=== PATIENT | female | born 1955 | race Caucasian/White ===

== ENCOUNTER 2016-02-24 07:44 | Inpatient (IN) | payer BC ==
[~2016-02-24] VITALS: Ht 154.9 cm; Wt 72.4 kg
[~2016-02-24 07:44] MED LIST: AMLO5TAB4 PO; ASPI-664 PO; CIPR500T4 PO; LANT3I SC; LIRA0.6P2 SQ; LOSA100T7 PO; ONDA4TAB35 PO; RANI150T5 PO; ULT50 PO
[2016-02-24] MEDS ORDERED: SODIUM CHLORIDE 0.9% 1L BAG IV* STA (08:31)
[2016-02-24] MEDS ORDERED: CEFTRIAXONE 1 GM/50 ML (PMX) 50 ML IVPB STA (08:31)
--- NOTE | 2016-02-24 08:54 | RADRPT ---
PROCEDURE: Chest Radiograph. CLINICAL INDICATION: Fever. TECHNIQUE: Single frontal chest radiograph. COMPARISON: None available FINDINGS: The cardiomediastinal silhouette is within normal limits. No infiltrate or effusion is seen. Th e bones are intact. IMPRESSION: 1. Unremarkable chest radiograph. RPTAT: KK .Red Acosta MD, MD Date Time Electronically viewed and signed by .Red Acosta MD, on 02/24/2016 08:54 .B/
[2016-02-24 09:22] LABS: ALBUMIN 4.4 g/dl (3.3-4.9); CHLORIDE 100 mmol/L (97-110); INR 1.09; PROTIME 14.1 Sec (12.2-14.2); PT RATIO 1.1
[2016-02-24 09:23] LABS: PARTIAL THROMBOPLASTIN TIME 29.5 Sec (25.0-35.0); POTASSIUM 3.8 mmol/L (3.5-5.1); SODIUM 139 mmol/L (135-144)
[2016-02-24 09:25] LABS: ALANINE AMINOTRANSFERASE 22 IU/L (13-69); ALBUMIN/GLOBULIN RATIO 1.15; ALKALINE PHOSPHATASE 111 IU/L (42-121); ANION GAP 19 (8-16); ASPARTATE AMINO TRANSFERASE 17 IU/L (15-46); BILIRUBIN,INDIRECT 0.6 mg/dl (0-1.1); BILIRUBIN,TOTAL 0.6 mg/dl (0.2-1.3); BLOOD UREA NITROGEN 14 mg/dl (7-20); CALCIUM 10.2 mg/dl (8.4-10.2); CARBON DIOXIDE 24 mmol/L (21-31); CREATININE 0.71 mg/dl (0.44-1.00); GLUCOSE 176 mg/dl (70-220); HEMATOCRIT 41.9 % (37.0-47.0); HEMOGLOBIN 14.4 g/dl (12.0-16.0); LYMPHOCYTES # 1.2 10^3/ul (0.8-2.9); LYMPHOCYTES % 7.3 % (15.0-51.0); MEAN CORPUSCULAR HEMOGLOBIN 28.8 pg (29.0-33.0); MEAN CORPUSCULAR HGB CONC 34.4 g/dl (32.0-37.0); MEAN CORPUSCULAR VOLUME 83.7 fl (82.0-101.0); MEAN PLATELET VOLUME 8.6 fl (7.4-10.4); MONOCYTE # 1.2 10^3/ul (0.3-0.9); NEUTROPHIL # 14.2 10^3/ul (1.6-7.5); NEUTROPHILS % 85.7 % (39.0-77.0); PLATELET COUNT 217 10^3/UL (140-440); RED CELL DISTRIBUTION WIDTH 13.2 % (11.5-14.5); TOTAL PROTEIN 8.2 g/dl (6.1-8.1); UNCORRECTED WBC 16.6 10^3/ul (4.8-10.8); WHITE BLOOD COUNT 16.6 10^3/ul (4.8-10.8)
[2016-02-24 09:35] LABS: CONDITION 1
[2016-02-24 09:36] LABS: ADD UMIC YES; URINE BILIRUBIN (Dip) NEGATIVE (NEGATIVE); URINE BLOOD (Dip) NEGATIVE (NEGATIVE); URINE COLOR LT. YELLOW (YELLOW); URINE GLUCOSE (Dip) NEGATIVE (NEGATIVE); URINE KETONES (Dip) 3+ (NEGATIVE); URINE LEUKOCYTE ESTERASE (Dip) TRACE (NEGATIVE); URINE NITRITE (Dip) NEGATIVE (NEGATIVE); URINE TOTAL PROTEIN (Dip) 1+ (NEGATIVE); URINE UROBILINOGEN (Dip) 1.0 E.U./dL (0.1-1.0)
[2016-02-24 09:40] LABS: TROPONIN-I < 0.012 ng/ml (0.00-0.12)
[2016-02-24] MEDS ORDERED: LIRA0.6P SQ (10:13)
[2016-02-24 10:23] LABS: BACTERIA,URINE FEW; URINE RBCS NONE SEEN /HPF (0)
[2016-02-24] MEDS ORDERED: ACETAMINOPHEN 500 MG TAB PO STA (11:35)
--- NOTE | 2016-02-24 12:02 | RADRPT ---
PROCEDURE: CT Abdomen and Pelvis without contrast. CLINICAL INDICATION: Abdominal pain TECHNIQUE: CT scan of the abdomen and pelvis was performed on a multidetector high-resolution CT s canner without intravenous contrast. Coronal and sagittal reformatted images were obtained from the axial source images. Images were reviewed on a high-resolution PACS workstation. The total exam CTD I equals 15mGy and the total exam DLP equals 784mGy-cm. One or more of the following dose reduction techniques were used: Automated exposure control, Adjustment of the mA and/or kV according to patien t size, and/or use of iterative reconstruction technique. COMPARISON: Abdominal CT 04/13/2015 FINDINGS: Evaluation of the solid organs is limited given the lack of intravenous contrast administration. The lung bases are clear. Hypoattenuation of the liver. The pancreas, spleen, and adrenals are grossly unremarkable. No focal pericholecystic inflammatory changes. No hydronephrosis. No renal or ureteral stone. Left renal cyst. No bowel obstruction. Normal-caliber appendix. No significant retroperitoneal lymphadenopathy, ascites or evidence of pneumoperitoneum. Increased size of the 8 cm left adnexal/left lower quadrant complex cystic lesion with septations. IMPRESSION: Increased size of the 8 cm left adnexal/left lower quadrant complex cystic lesion with septations. R ecommend MRI pelvis with and without contrast for further evaluation if not already completed. No renal or ureteral stone. Normal-caliber appendix. No evidence of bowel obstruction. Hepatic steatosis. RPTAT: AA .Matt Vail MD, MD Date Time Electronically viewed and signed by .Matt Vail MD, on 02/24/2016 12:02 .T/
[2016-02-24] MEDS ORDERED: morphine 4 MG/ML VIAL IV STA (13:44)
[2016-02-24] MEDS ORDERED: ONDANSETRON 4 MG INJ IV PRN ×2 (14:00→16:30)
[2016-02-24] MEDS ORDERED: ACETAMINOPHEN 325 MG TAB PO PRN ×2 (14:00→16:30)
[2016-02-24 14:17] VITALS: TEMP 98.8
[2016-02-24 15:20] VITALS: Ht 154.9 cm; Wt 72.4 kg
[2016-02-24 15:21] VITALS: BP 115/55; PULSE 89; RESP 18
[2016-02-24] MEDS ORDERED: ZOLPIDEM 5 MG TAB PO PRN (16:30)
[2016-02-24] MEDS ORDERED: LORAZEPAM 2 MG INJ IV PRN (16:30)
[2016-02-24] MEDS ORDERED: HYDROCODONE/APAP (5/325) TAB PO PRN (16:30)
[2016-02-24] MEDS ORDERED: NACL 0.9% 3 ML SYG IV SCH (16:30)
[2016-02-24] MEDS ORDERED: GLUCAGON 1 MG INJ IM PRN (17:00)
[2016-02-24] MEDS ORDERED: GLUCOSE GEL 15 GRAM TUBE BUCCAL PRN (17:00)
[2016-02-24] MEDS ORDERED: DEXTROSE 50% 50 ML SYRINGE IV PRN ×2 (17:00)
[2016-02-24] MEDS ORDERED: GLUCOSE GEL 15 GRAM TUBE PO PRN ×2 (17:00)
[2016-02-24] MEDS: SOD CHLORIDE 0.45% 1,000 ML IV SCH (17:05)
[2016-02-24] MEDS: CEFTRIAXONE 1 GM/50 ML (PMX) 50 ML IVPB SCH (17:06)
[2016-02-24] MEDS: AMLODIPINE 5 MG TAB PO SCH (17:12)
[2016-02-24] MEDS: LOSARTAN 50 MG TAB PO SCH (17:12)
[2016-02-24] MEDS: ASPIRIN (EC) 81 MG TAB PO SCH (17:12)
[2016-02-24] MEDS: INSULIN ASPART [NOVOLOG] 3 ML PEN SC SCH ×3 (17:39→20:05)
--- NOTE | 2016-02-24 18:30 | HP ---
DATE OF ADMISSION: 02/24/2016 CHIEF COMPLAINT: Fevers, sweating and lower back pain. HISTORY OF PRESENT ILLNESS: The patient is a 60-year-old female with history of insulin-dependent d iabetes, hypertension, dyslipidemia, as well as previous history of pyelonephritis and TIA in the [facility]. The patient's last UTI was 3 years ago at [facility]. At that time, patient states that it did involve her kidneys. The patient presents with 3 days of worsening fevers, chills, diaphoresis wit h pain in her left lower back as well as in her lower abdomen. She presents to the ED where she was noted to have a fever of 101.1, pulse was tachycardic. She had leukocytosis. The patient has no o ther complaints at this time. She denies any cough. Denies any GI disturbance. Denies any shortne ss of breath or chest pain. PAST MEDICAL HISTORY: Insulin-dependent diabetes, hypertension, dyslipidemia, UTI and possible TIA 3 years ago. PAST SURGICAL HISTORY: . HOME MEDICATIONS: 1. Norvasc. 2. Aspirin. 3. Lantus. 4. Losartan. 5. Victoza. 6. Z-Diego ALLERGIES: NO KNOWN DRUG ALLERGIES. FAMILY HISTORY: Diabetes. SOCIAL HISTORY: Denies any alcohol, tobacco, or drug abuse. REVIEW OF SYSTEMS: A 12-point review of systems negative except for that discussed in the HPI. PHYSICAL EXAMINATION: VITAL SIGNS: Temperature max was 101.5, temperature current is 97.7, pulse is 89, respirations are 18, blood pressure is 115/55, saturation 97% on room air. GENERAL: No acute distress, alert and oriented. HEENT: Normocephalic, atraumatic. CHEST: Clear to auscultation. CARDIOVASCULAR: Regular rate and rhythm. ABDOMEN: Nondistended, soft. Tender to palpation in the lower midepigastrium. EXTREMITIES: No clubbing, cyanosis, or edema. BACK: Positive CVA tenderness in left back. LABORATORY DATA: White count 16.6, hemoglobin is 14.4, platelets are 217. Chemistry: Sodium is 13 9, potassium 3.8, anion gap 19. Lactic acid is 1.4, total protein is 8.2. INR is 1.09. UA has 2+ ketones, trace leukocyte esterase, WBCs 5 to 10 and total protein is 1+. DIAGNOSTICS: Abdominal pelvis CT shows increased size of the 8 cm left adnexal, left lower quadrant complex cystic lesion with septations. Recommend MRI of pelvis with and without contrast for furth er evaluation. No renal or ureteral stones. Normal caliber appendix. No evidence of bowel obstruc tion. Hepatic steatosis. Chest x-ray is unremarkable. ASSESSMENT AND PLAN: 1. Sepsis likely secondary to urinary tract infection. The patient's UA does suggest possibility o f urinary tract infection and her symptoms are consistent with a UTI with CVA tenderness on the left side and lower abdominal pain consistent with cystitis. We will treat empirically with Rocephin an d I will obtain a urine culture. Alternate etiology of abdominal pain may be secondary to adnexal m ass. We will obtain an MRI of pelvis with and without contrast for further evaluation. 2. Diabetes. Continue home insulin. 3. Hypertension. Continue home blood pressure meds. 4. Dyslipidemia. Continue statin. 5. Prophylaxis. Ambulation. Dictated By: LEODAN ADAM/RICARDO Conf#: [id number] DID#: [id number]
--- NOTE | 2016-02-24 18:36 | ERA ---
DATE OF SERVICE: 02/24/2016 HISTORY OF PRESENT ILLNESS: This 60-year-old female presented to the emergency room with upper abdo matty pain and fever for 3 days. She has also had some diarrhea. This is copious and watery withou t blood. She also had nausea and an episode of vomiting without blood or bile. She feels generaliz ed weakness and tiredness. She is a diabetic and states that her sugars are fairly well controlled. Denies chest pain, shortness of breath. Upper abdominal pain is a band-like sensation that goes a cross her entire upper abdomen and feels sharp and pressure-like. It does not radiate. REVIEW OF SYSTEMS: Ten-point review of systems negative except as in HPI. PAST MEDICAL HISTORY: Hypertension, hypercholesterolemia, diabetes. PAST SURGICAL HISTORY: Denies. SOCIAL HISTORY: Denies tobacco, alcohol, other drugs. Lives with family. FAMILY HISTORY: Noncontributory. PHYSICAL EXAMINATION VITAL SIGNS: Temperature 101.5, pulse 125, blood pressure 166/73, respirations 22, oxygen saturatio n 99% on room air. GENERAL: Mild to moderate distress, ill appearing. HEENT: Normocephalic, atraumatic. Mucous membranes of the mouth are moist. NECK: Supple. No meningismus or JVD. CARDIAC: Regular tachycardia without murmur. LUNGS: Clear to auscultation bilaterally. ABDOMEN: Mild upper abdominal tenderness across entire upper abdomen, moderate in epigastric area. No guarding or rebound. Bowel sounds positive. Nondistended. EXTREMITIES: No cyanosis, clubbing or edema. NEUROLOGIC: Alert and oriented x3. Cranial nerves II through XII intact. No focal deficits. SKIN: No rashes or other lesions. Dry, warm to touch. VASCULAR: Distal pulses intact to all 4 extremities with capillary refill less than 1 second. DIAGNOSTIC DATA: Laboratory: CBC significant for elevated white blood cell count of 16.6, no anemi a. BMP is within normal limits. Liver function tests are within normal limits. Troponin is negati ve. Coagulation studies within normal limits with an INR of 1.1. Urinalysis significant for 5 to 1 0 white blood cells per high-power field with trace leukocyte esterase. IMAGING DATA: Chest x-ray interpretation by myself. No acute process, no infiltrate, no widened me diastinum, no pneumothorax, no bony abnormalities. CT abdomen and pelvis interpretation: No definite acute process, no obstruction, no free air, no ab normal fat stranding. Per the radiologist, patient does have increase in left adnexal mass. No bon y abnormalities. EKG interpretation: Sinus tachycardia with normal axis and no ST or T-wave changes concerning for a cute ischemia. property assessment monitor interpretation: Sinus tachycardia, eventually transitioned to donita l sinus rhythm with no other arrhythmias. EMERGENCY DEPARTMENT COURSE AND MEDICAL DECISION MAKING: The patient has sepsis without an obvious source. Pain is upper abdominal. Does have increased white blood cells in her urine. Possibly thi s is secondary to urinary tract infection. No abdominal emergency was found. The patient does have a left adnexal mass but does not have any pain in the left lower quadrant or any tenderness on exam . She does appear ill and has 4 SIRS criteria with elevated white blood cell count, tachycardia, fe ton and respiratory rate. She was given 30 mL of IV fluid per kilogram as well as Rocephin for empi jose therapy. She was also given morphine and Zofran which helped her pain and resolved her nausea. She also does complain of diarrhea, possibly has a moderately severe gastroenteritis. She is diabe tic and will certainly be admitted for further evaluation and care of her septic condition. I spoke with Dr. Guerra, who will be admitting. Critical care time 36 minutes: This includes management of sepsis in an ill-appearing patient, care ful fluid administration, immediate antibiotic therapy, chart review, multiple visits to the patient 's bedside to re-assess her status, discussion with patient and admitting doctor. This does not inc lude any billable procedures. ADMISSION DIAGNOSES: 1. Sepsis. 2. Acute abdominal pain. 3. Diarrhea. 4. Left adnexal mass. DISPOSITION: Admitted in serious condition. Dictated By: STACY LARA/RICARDO Conf#: [id number] DID#: [id number]
[2016-02-24] MEDS: morphine 2 MG INJ IV PRN (18:54)
[2016-02-24] MEDS: INSULIN GLARGINE [LANtus] 3 ML PEN SC SCH (20:07)
[2016-02-24 20:48] VITALS: BP 99/55; RESP 18
[2016-02-25] MEDS: SOD CHLORIDE 0.45% 1,000 ML IV SCH ×3 (00:04→17:32)
[2016-02-25] MEDS: ACCUCHECK XX SCH (02:00)
[2016-02-25] MEDS: morphine 2 MG INJ IV PRN ×2 (05:21→10:09)
[2016-02-25 06:23] LABS: POTASSIUM 3.8 mmol/L (3.5-5.1)
[2016-02-25 06:25] LABS: CREATININE 0.6 mg/dl (0.44-1.00)
[2016-02-25 06:26] LABS: CALCIUM 9.6 mg/dl (8.4-10.2); MAGNESIUM 2.1 mg/dl (1.7-2.5); PHOSPHORUS 2.2 mg/dl (2.5-4.9)
[2016-02-25 06:27] LABS: CHOL/HDL RATIO 4.3 RATIO
[2016-02-25 06:29] LABS: BASOPHILS % 0.1 % (0.0-2.0); EOSINOPHILS % 0.2 % (0.0-7.0); HEMATOCRIT 39.5 % (37.0-47.0); HEMOGLOBIN 13.6 g/dl (12.0-16.0); LYMPHOCYTES # 1.7 10^3/ul (0.8-2.9); MEAN CORPUSCULAR HEMOGLOBIN 28.9 pg (29.0-33.0); MEAN CORPUSCULAR HGB CONC 34.5 g/dl (32.0-37.0); MEAN CORPUSCULAR VOLUME 83.7 fl (82.0-101.0); MONOCYTE # 1.5 10^3/ul (0.3-0.9); MONOCYTES % 8.1 % (0.0-11.0); NEUTROPHIL # 15.8 10^3/ul (1.6-7.5); NEUTROPHILS % 82.6 % (39.0-77.0); PLATELET COUNT 214 10^3/UL (140-440); RED BLOOD COUNT 4.71 10^6/ul (4.20-5.40); RED CELL DISTRIBUTION WIDTH 13.6 % (11.5-14.5); UNCORRECTED WBC 19.1 10^3/ul (4.8-10.8); WHITE BLOOD COUNT 19.1 10^3/ul (4.8-10.8)
[2016-02-25 06:51] LABS: CONDITION 1
[2016-02-25 07:37] VITALS: BP 140/63; RESP 19
[2016-02-25] MEDS: INSULIN ASPART [NOVOLOG] 3 ML PEN SC SCH ×7 (08:00→20:17)
[2016-02-25] MEDS: ASPIRIN (EC) 81 MG TAB PO SCH (08:42)
[2016-02-25] MEDS: AMLODIPINE 5 MG TAB PO SCH (08:42)
[2016-02-25] MEDS: LOSARTAN 50 MG TAB PO SCH (08:42)
--- NOTE | 2016-02-25 15:28 | PN ---
Date/Time of Note Date/Time of Note DATE: 02/25/16 TIME: 15:23 Assessment/Plan VTE Prophylaxis VTE Prophylaxis Intervention: ambulation Lines/Catheters IV Catheter Type (from Nrsg): Peripheral IV Assessment/Plan Chief Complaint/Hosp Course 1. Sepsis likely secondary to urinary tract infection vs Adnexal mass -F/U on Ucx -MRI pelvis to further eval Adnexal mass, Medical Scribe consult -cont Rocephin 2. Diabetes -Continue home insulin -A1C at 7.6 3. Hypertension-stable -cont home Rx 4. Dyslipidemia -Continue statin. 5. Neck pain -CT neck Prophylaxis- Ambulation. Problems: Subjective 24 Hr Interval Summary ENT: sore throat Gastrointestinal: pain Exam/Review of Systems Vital Signs Vitals Vital Signs Date Time Temp Pulse Resp B/P Pulse Ox O2 Delivery O2 Flow Rate FiO2 02/25/16 07:37 98.2 85 19 140/63 97 02/24/16 15:21 Room Air 02/24/16 08:43 3 Intake and Output 02/24/16 02/24/16 02/25/16 15:00 23:00 07:00 Intake Total 120 ml 1220 ml Balance 120 ml 1220 ml Exam Constitutional: alert, oriented Respiratory: clear to auscultation Cardiovascular: regular rate and rhythm Gastrointestinal: soft, tender, No distended Musculoskeletal: nl extremities to inspection Results Result Diagram: 02/25/16 0515 02/25/16 0515 Results 24 hrs Laboratory Tests Test 02/24/16 16:20 02/24/16 17:19 02/24/16 19:55 02/25/16 05:15 Lactic Acid Level 1.5 Bedside Glucose 222 H 140 Anion Gap 15 Basophils # 0.0 Basophils % 0.1 Blood Morphology Comment Blood Urea Nitrogen 11 Calcium Level 9.6 Carbon Dioxide Level 26 Chloride Level 105 Cholesterol Level 136 Cholesterol/HDL Ratio 4.3 Creatinine 0.60 Eosinophils # 0.0 Eosinophils % 0.2 Glucose Level 106 # HDL Cholesterol 31 L Hematocrit 39.5 Hemoglobin 13.6 Hemoglobin A1c 7.6 H LDL Cholesterol, Calculated 92 Lymphocytes # 1.7 Lymphocytes % 9.0 L Magnesium Level 2.1 Mean Corpuscular Hemoglobin 28.9 L Mean Corpuscular Hemoglobin Concent 34.5 Mean Corpuscular Volume 83.7 Mean Platelet Volume 9.0 Monocytes # 1.5 H Monocytes % 8.1 Neutrophils # 15.8 H Neutrophils % 82.6 H Nucleated Red Blood Cells # 0.0 Nucleated Red Blood Cells % 0.0 Phosphorus Level 2.2 L Platelet Count 214 Potassium Level 3.8 Red Blood Count 4.71 Red Cell Distribution Width 13.6 Sodium Level 142 Triglycerides Level 66 White Blood Count 19.1 H Test 02/25/16 08:01 02/25/16 11:18 Bedside Glucose 105 243 H Medications Medications Current Medications Sodium Chloride (1/2 NS) 1,000 ml @ 125 mls/hr Q8H IV Last administered on 05:20; Admin Dose 125 MLS/HR; Start 02/24/16 at 16:04 Ondansetron HCl (Zofran Inj) 4 mg Q6H PRN IV NAUSEA AND/OR VOMITING; Start at 16:30 Acetaminophen (Tylenol Tab) 650 mg Q6H PRN PO PAIN LEVEL 1-3 OR FEVER; Start at 16:30 Acetaminophen/ Hydrocodone Bitart ([place] (5/325)) 1 tab Q6H PRN PO MODERATE PAIN LEVEL 4-6 Last administered on 02/24/16 17:06; Admin Dose 1 TAB; Start at 16:30 Morphine Sulfate (morphine) 2 mg Q4H PRN IV SEVERE PAIN LEVEL 7-10 Last administered on 02/25/16 10:09; Admin Dose 2 MG; Start 02/24/16 at 16:30 Zolpidem Tartrate (Ambien) 5 mg QHS PRN PO SLEEP; Start 02/24/16 at 16:30 Diagnostic Test (Pha) 1 ea 1 ea 02 XX ; Start 02/25/16 at 02:00 Ceftriaxone Sodium (Rocephin) 50 ml @ 100 mls/hr Q24H IVPB Last administered on 02/24/16 17:06; Admin Dose 100 MLS/HR; Start 02/24/16 at 16:30 Amlodipine Besylate (Norvasc) 5 mg DAILY PO Last administered on 02/25/16 08: 42; Admin Dose 5 MG; Start 02/24/16 at 17:00 Aspirin (Halfprin) 81 mg DAILY PO Last administered on 02/25/16 08:42; Admin Dose 81 MG; Start 02/24/16 at 17:00 Losartan Potassium (Cozaar) 100 mg DAILY PO Last administered on 02/25/16 08: 42; Admin Dose 100 MG; Start 02/24/16 at 17:00 Insulin Glargine (Lantus) 14 unit HS SC Last administered on 02/24/16t 20:07; Admin Dose 14 UNIT; Start 02/24/16 at 21:00 Lorazepam (Ativan) 0.5 mg Q6H PRN IV AGITATION/ANXIETY; Start 02/24/16 at 16:30 Miscellaneous Information 1 ea NOTE XX ; Start 02/24/16 at 17:00 Glucose (Glutose) 15 gm Q15M PRN PO DECREASED GLUCOSE; Start 02/24/16 at 17:00 Glucose (Glutose) 22.5 gm Q15M PRN PO DECREASED GLUCOSE; Start 02/24/16 at 17: 00 Dextrose (D50w Syringe) 25 ml Q15M PRN IV DECREASED GLUCOSE; Start 02/24/16 at 17:00 Dextrose (D50w Syringe) 50 ml Q15M PRN IV DECREASED GLUCOSE; Start 02/24/16 at 17:00 Glucagon (Glucagen) 1 mg Q15M PRN IM DECREASED GLUCOSE; Start 02/24/16 at 17:00 Glucose (Glutose) 15 gm Q15M PRN BUCCAL DECREASED GLUCOSE; Start 02/24/16 at 17 :00 LEODAN FINLEY Feb 25, 2016 15:28
[2016-02-25] MEDS: CEFTRIAXONE 1 GM/50 ML (PMX) 50 ML IVPB SCH (17:29)
[2016-02-25] MEDS: INSULIN GLARGINE [LANtus] 3 ML PEN SC SCH (20:17)
[2016-02-25 20:50] VITALS: BP 124/59; RESP 19
[2016-02-25] MEDS ORDERED: IOHEXOL 300MG/ML 150 ML BTL ONE (21:24)
[2016-02-25] MEDS ORDERED: SOD CHLORIDE 0.9% 100 ML ONE (21:24)
[2016-02-26] MEDS: SOD CHLORIDE 0.45% 1,000 ML IV SCH ×3 (00:04→16:04)
[2016-02-26] MEDS: ACCUCHECK XX SCH (02:00)
[2016-02-26] MEDS: morphine 2 MG INJ IV PRN (02:29)
--- NOTE | 2016-02-26 02:38 | RADRPT ---
PROCEDURE: CT soft tissue neck with contrast. CLINICAL INDICATION: throat pain TECHNIQUE: The study was performed utilizing a multidetector CT scanner. Direct thin section helic ally acquired axial sections were obtained through the neck without contrast. Coronal and sagittal reformations were obtained. 80 cc Omnipaque 300 was administered without complication. The total CT DIvol is 19.69 mGy and the DLP is 404.93 mGy-cm. COMPARISON: No prior studies are available for comparison. FINDINGS: The visualized intracranial contents, paranasal sinuses, and orbits are unremarkable. March, grossly symmetric enlargement of the palatine tonsils and left lingual tonsil/base of tongue narrowing in the posterior oropharynx. The hypopharynx and laryngeal structures are unremarkable. P rominent innumerable bilateral cervical lymph nodes throughout the neck measures less than 1 cm in s hort axis dimension. Although these findings may reflect inflammatory change and pharyngitis with r eactive lymph nodes, infiltrative process such as lymphoma cannot be excluded. Direct visualization is recommended. Normal appearance of the false and true vocal cords. Bilateral thyroid calcifications right greater than left. submandibular and parotid glands are unremarkable and normal in appearance. No gross vascular abno rmality. No osteolytic or blastic lesion is evident. The visualized lung apices are clear. IMPRESSION: 1. Grossly symmetric enlargement of the palatine tonsils and left lingual tonsil / base of tongue r esulting in severe narrowing in the posterior oropharynx. Innumerable prominent lymph nodes through out the neck without bulky lymphadenopathy. Although these findings may reflect inflammatory proces s such as pharyngitis with reactive lymph nodes, an infiltrative process such as lymphoma cannot be excluded. Direct visualization is recommended. Tissue diagnosis may be considered as clinically in dicated . 2. No lytic or blastic osseous lesion. RPTAT:AAJJ Anna Marie Physician Date Time Electronically viewed and signed by Physician Burt on 02/26/2016 02:38 VLAD/
[2016-02-26 05:36] LABS: BASOPHILS % 0.4 % (0.0-2.0); EOSINOPHILS # 0.3 10^3/ul (0.0-0.5); HEMATOCRIT 39.4 % (37.0-47.0); HEMOGLOBIN 13.4 g/dl (12.0-16.0); LYMPHOCYTES # 2.1 10^3/ul (0.8-2.9); LYMPHOCYTES % 22.7 % (15.0-51.0); MEAN CORPUSCULAR HEMOGLOBIN 28.6 pg (29.0-33.0); MEAN CORPUSCULAR HGB CONC 33.9 g/dl (32.0-37.0); MEAN CORPUSCULAR VOLUME 84.2 fl (82.0-101.0); MEAN PLATELET VOLUME 8.9 fl (7.4-10.4); MONOCYTE # 1.2 10^3/ul (0.3-0.9); NEUTROPHIL # 5.7 10^3/ul (1.6-7.5); NEUTROPHILS % 60.9 % (39.0-77.0); PLATELET COUNT 208 10^3/UL (140-440); RED BLOOD COUNT 4.68 10^6/ul (4.20-5.40); RED CELL DISTRIBUTION WIDTH 13.4 % (11.5-14.5); UNCORRECTED WBC 9.3 10^3/ul (4.8-10.8); WHITE BLOOD COUNT 9.3 10^3/ul (4.8-10.8)
[2016-02-26 06:07] LABS: CONDITION 1
[2016-02-26 06:19] LABS: CREATININE 0.65 mg/dl (0.44-1.00)
[2016-02-26 06:20] LABS: CALCIUM 9.7 mg/dl (8.4-10.2); PHOSPHORUS 3.1 mg/dl (2.5-4.9)
[2016-02-26 07:54] VITALS: BP 150/70; RESP 18
[2016-02-26] MEDS: INSULIN ASPART [NOVOLOG] 3 ML PEN SC SCH ×6 (08:20→17:11)
[2016-02-26] MEDS: AMLODIPINE 5 MG TAB PO SCH (08:21)
[2016-02-26] MEDS: LOSARTAN 50 MG TAB PO SCH (08:21)
[2016-02-26] MEDS: ASPIRIN (EC) 81 MG TAB PO SCH (08:21)
--- NOTE | 2016-02-26 13:28 | PDOCDIS ---
Discharge Instructions CONDITION Patient Condition: Good HOME CARE INSTRUCTIONS: Special Diet: CARB CONTROLLED ACTIVITY: Activity Restrictions: No Restrictions FOLLOW UP/APPOINTMENTS Appointments F/U WITH YOUR PCP AND [facility] GUIDE IN 1-2 WEEKS, ALSO F/U WITH AN ENT AND PLEASE SHOW THEM THE CT SCAN OF THE NECK LEODAN FINLEY Feb 26, 2016 13:28
[2016-02-26] MEDS ORDERED: CEPH500C PO (13:30)
[2016-02-26] MEDS: CEFTRIAXONE 1 GM/50 ML (PMX) 50 ML IVPB SCH (17:01)
--- NOTE | 2016-02-26 18:58 | QN ---
Documentation Comment Gynecological Consult; This patient is a 60 years old 6 para 5 spontaneous x1 ,who had 4 previous section and one spontaneous vaginal delivery. She is hypertensive and diabetic on insulin she also had the dysuria: She came in the hospital 2 days ago complaining of abdominal pain back pain and fever . Her lab studies showed that her WBC was 16.6 on 02/25/16 , next day on 02/25 the WBC was 19.1 however her WBC dropped to 9.3 today with antibiotic treatment. On examination , she is a middle aged lady fairly comfortable on her bed. Her ENT appears to be normal , Chest is clear, No CVA tenderness. Abdomen is soft, Bowel sounds are normal, There is no true tenderness on palpation of the abdomen. Pelvic; on bimanual pelvic exam , vulva, vagina and cervix were normal. Uterus appeared to be TNS , I could not palpate a separate adnexal mass. Laboratory Tests Test 02/25/16 19:49 02/26/16 02:22 02/26/16 04:35 02/26/16 07:45 Bedside Glucose 262mg/dL 182mg/dL 155mg/dL Anion Gap 14 Basophils # 0.010^3/ul Basophils % 0.4% Blood Morphology Comment Blood Urea Nitrogen 10mg/dl Calcium Level 9.7mg/dl Carbon Dioxide Level 28mmol/L Chloride Level 108mmol/L Creatinine 0.65mg/dl Eosinophils # 0.310^3/ul Eosinophils % 3.0% Glucose Level 164mg/dl Hematocrit 39.4% Hemoglobin 13.4g/dl Lymphocytes # 2.110^3/ul Lymphocytes % 22.7% Mean Corpuscular Hemoglobin 28.6pg Mean Corpuscular Hemoglobin Concent 33.9g/dl Mean Corpuscular Volume 84.2fl Mean Platelet Volume 8.9fl Monocytes # 1.210^3/ul Monocytes % 13.0% Neutrophils # 5.710^3/ul Neutrophils % 60.9% Nucleated Red Blood Cells # 0.010^3/ul Nucleated Red Blood Cells % 0.0/100WBC Phosphorus Level 3.1mg/dl Platelet Count 76874^3/UL Potassium Level 4.0mmol/L Red Blood Count 4.6810^6/ul Red Cell Distribution Width 13.4% Sodium Level 146mmol/L White Blood Count 9.310^3/ul Test 02/26/16 12:03 02/26/16 16:56 Bedside Glucose 138mg/dL 136mg/dL Current Medications Medications (Trade) Dose Ordered Sig/Elaine Route PRN Reason Start Time Stop Time Status Last Admin Dose Admin Sodium Chloride 2230 ml 2,230 ml BOLUS OVER 2 HOURS STAT IV* 02/24/16 08:31 02/24/16 08:32 DC 02/24/16 09:12 Ceftriaxone Sodium (Rocephin) 50 ml @ 100 mls/hr ONCE STAT IVPB 02/24/16 08:31 02/24/16 09:00 DC 02/24/16 09:14 Acetaminophen (Tylenol Tab) 500 mg ONCE STAT PO 02/24/16 11:35 02/24/16 11:36 DC 02/24/16 11:53 Morphine Sulfate (morphine) 4 mg ONCE STAT IV 02/24/16 13:44 02/24/16 13:47 DC Ondansetron HCl (Zofran Inj) 4 mg BRIDGE ORDER PRN IV NAUSEA AND/OR VOMITING 02/24/16 14:00 02/25/16 13:59 DC Acetaminophen 650 mg 650 mg ER BRIDGE PRN PO MILD PAIN/FEVER 02/24/16 14:00 02/24/16 16:31 DC Sodium Chloride (1/2 NS) 1,000 ml @ 125 mls/hr Q8H IV 02/24/16 16:04 02/26/16 18:22 DC 02/26/16 02:29 IV Flush (NS 3 ml) 3 ml PER PROTOCOL IV 02/24/16 16:30 02/26/16 18:22 DC Ondansetron HCl (Zofran Inj) 4 mg Q6H PRN IV NAUSEA AND/OR VOMITING 02/24/16 16:30 02/26/16 18:22 DC Acetaminophen (Tylenol Tab) 650 mg Q6H PRN PO PAIN LEVEL 1-3 OR FEVER 02/24/16 16:30 02/26/16 18:22 DC Acetaminophen/ Hydrocodone Bitart ([place] (5/325)) 1 tab Q6H PRN PO MODERATE PAIN LEVEL 4-6 02/24/16 16:30 02/26/16 18:22 DC 02/24/16 17:06 Morphine Sulfate (morphine) 2 mg Q4H PRN IV SEVERE PAIN LEVEL 7-10 02/24/16 16:30 02/26/16 18:22 DC 02/26/16 02:29 Zolpidem Tartrate (Ambien) 5 mg QHS PRN PO SLEEP 02/24/16 16:30 02/26/16 18:22 DC Insulin Aspart (Novolog Insulin Pen) NOVOLOG *MILD* ALGORITHM WITH MEALS BEDTIME SC 02/24/16 18:05 02/26/16 18:22 DC 02/26/16 08:21 Miscellaneous Information (* Miscellaneous Pharmacy Order) HYPOGLYCEMIA PROTOCOL w... ONCE ONCE XX 02/24/16 16:30 02/24/16 16:31 UNV Miscellaneous Information (* Miscellaneous Pharmacy Order) Discontinue Glyburide, Glipizide,... ONCE ONCE XX 02/24/16 16:30 02/24/16 16:31 UNV Miscellaneous Information (* Miscellaneous Pharmacy Order) Discontinue all previ... ONCE ONCE XX 02/24/16 16:30 02/24/16 16:31 UNV Diagnostic Test (Pha) 1 ea 1 ea 02 XX 02/25/16 02:00 02/26/16 18:22 DC Ceftriaxone Sodium (Rocephin) 50 ml @ 100 mls/hr Q24H IVPB 02/24/16 16:30 02/26/16 18:22 DC 02/26/16 17:01 Amlodipine Besylate (Norvasc) 5 mg DAILY PO 02/24/16 17:00 02/26/16 18:22 DC 02/26/16 08:21 Aspirin (Halfprin) 81 mg DAILY PO 02/24/16 17:00 02/26/16 18:22 DC 02/26/16 08:21 Losartan Potassium (Cozaar) 100 mg DAILY PO 02/24/16 17:00 02/26/16 18:22 DC 02/26/16 08:21 Insulin Glargine (Lantus) 14 unit HS SC 02/24/16 21:00 02/26/16 18:22 DC 02/25/16 20:17 Insulin Aspart (Novolog Insulin Pen) 7 unit WITH MEALS SC 02/24/16 17:35 02/26/16 18:22 DC 02/26/16 17:02 Miscellaneous Information (* Miscellaneous Pharmacy Order) HYPOGLYCEMIA PROTOCOL w... ONCE ONCE XX 02/24/16 16:30 02/24/16 16:34 DC Miscellaneous Information (* Miscellaneous Pharmacy Order) Discontinue Glyburide, Glipizide,... ONCE ONCE XX 02/24/16 16:30 02/24/16 16:34 DC Miscellaneous Information (* Miscellaneous Pharmacy Order) Discontinue all previ... ONCE ONCE XX 02/24/16 16:30 02/24/16 16:34 DC Lorazepam (Ativan) 0.5 mg Q6H PRN IV AGITATION/ANXIETY 02/24/16 16:30 02/26/16 18:22 DC Miscellaneous Information 1 ea NOTE XX 02/24/16 17:00 02/26/16 18:22 DC Glucose (Glutose) 15 gm Q15M PRN PO DECREASED GLUCOSE 02/24/16 17:00 02/26/16 18:22 DC Glucose (Glutose) 22.5 gm Q15M PRN PO DECREASED GLUCOSE 02/24/16 17:00 02/26/16 18:22 DC Dextrose (D50w Syringe) 25 ml Q15M PRN IV DECREASED GLUCOSE 02/24/16 17:00 02/26/16 18:22 DC Dextrose (D50w Syringe) 50 ml Q15M PRN IV DECREASED GLUCOSE 02/24/16 17:00 02/26/16 18:22 DC Glucagon (Glucagen) 1 mg Q15M PRN IM DECREASED GLUCOSE 02/24/16 17:00 02/26/16 18:22 DC Glucose (Glutose) 15 gm Q15M PRN BUCCAL DECREASED GLUCOSE 02/24/16 17:00 02/26/16 18:22 DC IV Flush 10 ml 10 ml STK-MED ONCE .ROUTE 02/25/16 21:24 02/25/16 21:25 DC 02/25/16 22:04 Sodium Chloride (NS) 100 ml @ ud STK-MED ONCE .ROUTE 02/25/16 21:24 02/25/16 21:25 DC 02/25/16 22:04 Iohexol (Omnipaque 300mg/ ml) 150 ml STK-MED ONCE .ROUTE 02/25/16 21:24 02/25/16 21:25 DC 02/25/16 22:04 Disposition: I discussed my findings with our hospitalist. Admit Date/Time Admit Date/Time Admit Date/Time Feb 24, 2016 at 13:48 BETTINA SHEPPARD MD Feb 26, 2016 18:51
--- NOTE | 2016-02-27 12:08 | DS ---
DATE OF ADMISSION: 02/24/2016 DATE OF DISCHARGE: 02/26/2016 DISCHARGE DIAGNOSES 1. Sepsis, secondary to urinary tract infection (UTI), now stable. 2. Adnexal mass in the left, stable; no acute issues. 3. Neck pain, secondary to pharyngitis with reactive lymph nodes, improved. The patient to follow up with ENT for direct visualization to rule out . HOSPITAL COURSE: The patient is a 60-year-old female with a history of insulin-dependent diabetes, hypertension, dyslipidemia, as well as a previous history of pyelonephritis and TIA in the past. Th e patient presents with back pain with CVA tenderness on the left side. The patient did meet criteria for sepsis with leukocytosis, fever, and tachycardia. The patient's UA did suggest a possi ble UTI. Urine culture ended up showing a Group B strep. Blood cultures were negative. The patien t did have abdominal pelvis CT that showed an increased size of an 8 cm left adnexal cyst. MRI of reyes poon pelvis was recommended. MRI was attempted to be done, but the patient refused because of c laustrophobia. She was offered Ativan, but she still did not want to have the Ativan, nor did she w ant to have the MRI done. The patient had neck pain and had a soft tissue neck CT of the neck, whic h showed likely pharyngitis with reactive lymph nodes. The radiologist stated infiltrative ly mphoma could not be excluded. The patient's pain did resolve fairly quickly within the hospit alization after having received antibiotics. Her physical exam was inconsistent with a lymphoma. N onetheless, the patient's daughter was told that the patient should follow up with an ENT physician for further direct visualization. The patient was felt to be stable for discharge, as her white cou nt did resolve. She had no further fevers, and as her signs of sepsis did resolve, it was felt that she had a possible cystitis or pyelonephritis, which was now resolving. On the day of discharge, t he patient's vitals, labs, and physical exam were stable. She had no acute complaints. Questions w ere answered, and the patient's daughter was spoken to prior to discharge. CONDITION ON DISCHARGE: Stable. DISPOSITION: To home. MEDICATIONS: The patient will continue usual home medications. The patient was given Keflex 500 mg p.o. q. 12 hours for 7 days. FOLLOWUP: The patient is to follow up with PCP in 1 to 2 weeks. The patient is also to follow up w ith a [employer] for the left adnexal cyst and with ENT. Greater than 30 minutes were spent coordinating discharge of the patient. Dictated By: LEODAN FINLEY MD BS/RICARDO Conf#: [id number] DID#: [id number]
== END 2016-02-26 18:22 | disposition home or self-care (01) | DRG 872 ==
LOC: E/R 07:44 → PP2 13:48
PROVIDERS: ADMIT Family Medicine; ATTEND Family Medicine
DX: A41.9 Sepsis, unspecified organism (principal); I10 Essential (primary) hypertension; N39.0 Urinary tract infection, site not specified; J02.9 Acute pharyngitis, unspecified; E11.9 Type 2 diabetes mellitus without complications; Z79.4 Long term (current) use of insulin; E78.5 Hyperlipidemia, unspecified; M54.2 Cervicalgia
CPT/HCPCS: 70491; 71010; 74176; 80048; 80053; 80061; 81001; 81003; 82962; 83036; 83605; 83690; 83735; 84100; 84484; 85025; 85610; 85730; 87040; 87086; 93005; J0696; J1815; J2060; J2270; J7030; Q9967

== ENCOUNTER 2016-05-01 15:46 | Emergency (ER) | payer SELFPAY ==
[~2016-05-01] VITALS: Wt 70.6 kg
[~2016-05-01 15:46] MED LIST changes: +CEPH500C PO; -CIPR500T4 PO; +LIRA0.6P SQ; -LIRA0.6P2 SQ; -ONDA4TAB35 PO; -RANI150T5 PO; -ULT50 PO
== END 2016-05-01 21:39 | disposition left against medical advice (07) ==
LOC: E/R 15:46
DX: Z53.21 Procedure and treatment not carried out due to patient leaving prior to being seen by health care provider (principal)

== ENCOUNTER 2016-06-08 15:55 | Outpatient (CLI) | payer BC ==
[~2016-06-08] VITALS: Ht 154.9 cm; Wt 72.7 kg
[2016-06-08 16:11] VITALS: Ht 154.9 cm; Wt 72.7 kg
[2016-06-08] MEDS ORDERED: RISP0.5T3 PO (16:11)
[2016-06-08] MEDS ORDERED: MTF1000T PO (16:11)
[2016-06-08] MEDS ORDERED: ACET-141 PO (16:11)
[2016-06-08] MEDS ORDERED: VALS320T11 PO (16:11)
[2016-06-08] MEDS ORDERED: ATOR20TA38 PO (16:11)
[2016-06-08] MEDS ORDERED: METF-480 PO (16:11)
[2016-06-08] MEDS ORDERED: FLUO20CA22 PO (16:11)
[2016-06-08] MEDS ORDERED: LORA1TAB PO (16:11)
[2016-06-08] MEDS ORDERED: RANI150T5 PO (16:11)
[2016-06-08 16:12] VITALS: BP 121/60; PULSE 84; RESP 16
--- NOTE | 2016-06-08 16:19 | PN ---
Date/Time of Note Date/Time of Note DATE: 06/08/16 TIME: 16:16 Outpatient Progress Note Chief Complaint Chest pain/diabetes/hypertension/hyperlipidemia/anxiety HPI Chest pain/patient was recently admitted with a chest pain, patient does not have any chest pain at present, no pain in the left arm or shoulder, no diaphoresis, patient able to exercise and ambulate well, Diabetes/no polydipsia polyuria hypoglycemia, gastroparesis, blood sugar under control, Hypertension/no headache or dizziness, no lightheadedness, no local focal weakness, Hyperlipidemia/no xanthoma, on medication, side effect of medication, Anxiety/patient anxious nervous, and also history of history of depression, on medication, Review of Systems Const: No Fever, no chills, no Wt. loss, no Fatigue slightly obese, normal appetite, no diaphoresis. Eyes: No pain, no discharge, no redness, no visual change, no foreign body. ENT: No pain, no bleeding, no congestion, no sore throat, no dysphagia, no discharge or rhinitis. Lymph: No adenopathy, no tender nodes, no lymphedema. Resp: No SOB, no cough, no sputum, no wheezing, no chest pain. CV: No chest pain, no palpitaions, no PARKER, no PND, no edema. GI: Normal appetite, no pain, no nausea, no vomiting, no diarrhea, no blood, no constipation. : No frequency, no urgency, no dysuria, no hematuria, no flank pain, no discharge, no bleeding. Musc: No bone/joint pain, no back pain, no neck pain, no knee pain, no restricted ROM. Skin: No rash, no skin lesions, no erythema, no laceration, no bruising, no pruritus. Neuro: No WASSERMAN, no dizziness, no syncope, no seizure, no focal-weakness. Endo: No polyuria, no polydypsia, no dry-skin, no temp-intolerance. Psych: No hallucinations, slight depression slight anxiety, no suicidal ideation. Ext: No edema, no pain, no ulcer, no weakness. Physical Exam Vital Signs Date Time Temp Pulse Resp B/P Pulse Ox O2 Delivery O2 Flow Rate FiO2 06/08/16 16:12 97.7 84 16 121/60 97 Room Air General Appearance: A 60 year-old female who appears well-developed, well- nourished, in no acute distress. HEENT: Head normocephalic, atraumatic. Pupils equal, round, reactive to light and accommodate. Sclerae are no jaundice. Nasal turbinates pink without erythema or nasal discharge. Mucous membranes pink and moist without lesions. Oropharynx clear without any exudate or discharge. NECK: Supple. Trachea midline, No thyromegaly, No cervical lymphadenopathy, No mass, No carotid bruits, No JVD, Carotid pulses 2+ bilaterally. PULMONARY: Clear to auscultaion bilaterally, No retractions, Chest expansion symmetric bilaterally, no rales, no ronchi, no dulness on percussion. CARDIAC: Normal SI and S2, Regular rate and rythm, no murmur, gallop, or rub. GASTROINTESTINAL: Abdomen is soft, non-tender, Non Rigid, No distention, Positive bowel sounds x4 quadrants, Liver normal. SKIN: Warm, dry, no rash, no bruise, no echmosis. EXTREMITIES: Bilateral lower extremities normal, no edema, no phlabitus, pulse palpable, no contracture. MUSCULOSKELETAL: Spine Normal, Non-tender, Normal range of motion, No swelling, no deformity, no clubbing, or cyanosis, the patient has no edema to bilateral lower extremities, dorsalis pedis pulses palpable bilaterally. NEUROLOGIC: The patient is awake, alert, oriented, responding to yes/no questions appropriately, moving all extremities, cranial nerve intact, normal strenght, normal power, normal coordination, normal gait. Allergies Coded Allergies: No Known Allergy (Unverified , 02/24/16) PMH Diabetes/hypertension/hyperlipidemia/anxiety/depression section Social Hx No smoking no drinking no drugs, Family Hx Noncontributory Assessment/Plan Impression Chest pain resolved/diabetes/hypertension/hyperlipidemia/anxiety Plan Patient education done about diabetes hypertension and heart attack stroke kidney failure [place] etc. patient education done, Patient encouraged to control her blood pressure and blood sugar, Patient advised to increase exercise, and lose weight, Patient encouraged to follow with the primary care physician, Patient has all the medication, if patient has any other issues to contact us or primary care physician, Medications Home Meds Reported Medications Valsartan* (Diovan*) 320 Mg Tablet, 320 MG PO DAILY, TAB 06/08/16 Risperidone* (Risperidone*) 0.5 Mg Tablet, 0.5 MG PO BID, TAB 06/08/16 Ranitidine Hcl* (Ranitidine Hcl*) 150 Mg Tablet, 150 MG PO Q12, #60 TAB 06/08/16 Metformin* (Glucophage*) 1,000 Mg Tablet, 1000 MG PO BID, #60 TAB 06/08/16 Metformin* (Glucophage*) 850 Mg Tablet, 850 MG PO WITH BREAKFAST DINNE, #60 TAB 06/08/16 Lorazepam* (Lorazepam*) 1 Mg Tablet, 2 MG PO Q6 Y for ANXIETY, #60 TAB 06/08/16 Fluoxetine Hcl* (Fluoxetine Hcl*) 20 Mg Capsule, 20 MG PO DAILY, CAP 06/08/16 Atorvastatin Calcium* (Atorvastatin Calcium*) 20 Mg Tablet, 20 MG PO QHS, #30 TAB 06/08/16 Acetaminophen* (Acetaminophen*) 500 MG Extra Strength Tablet, 500 MG PO Q6H Y for PAIN LEVEL 1-5, TAB 06/08/16 Liraglutide (Victoza 2-Diego) 0.6 Mg/0.1 Ml Pen.injctr, 1.2 MG SQ DAILY, SYR 02/24/16 Amlodipine Besylate* (Norvasc*) 5 Mg Tablet, 5 MG PO DAILY, TAB 04/13/15 Insulin Glargine* (Lantus*) 100 Unit/Ml Soln, UNIT SC, #1 VIAL 04/13/15 Discontinued Reported Medications Aspirin* (Aspirin* EC) 81 Mg Tablet.dr, 81 MG PO DAILY, TAB 04/13/15 Losartan Potassium* (Losartan Potassium*) 100 Mg Tablet, 100 MG PO DAILY, TAB 04/13/15 Discontinued Scripts Cephalexin* (Cephalexin*) 500 Mg Capsule, 500 MG PO Q12 for 7 Days, CAP Prov:LEODAN FINLEY 02/26/16 CHANDRIKA CHRISTENSEN MD June 08, 2016 16:19
== END 2016-06-08 16:37 | disposition home or self-care (01) ==
LOC: DCC 15:55
PROVIDERS: ATTEND Internal Medicine
DX: R07.9 Chest pain, unspecified (principal); E11.9 Type 2 diabetes mellitus without complications; I10 Essential (primary) hypertension; E78.5 Hyperlipidemia, unspecified; F41.9 Anxiety disorder, unspecified

== ENCOUNTER 2016-06-22 11:17 | Outpatient (CLI) | payer BC ==
[~2016-06-22] VITALS: Ht 154.9 cm; Wt 72.7 kg
[~2016-06-22 11:17] MED LIST changes: +ACET-141 PO; -ASPI-664 PO; +ATOR20TA38 PO; -CEPH500C PO; +FLUO20CA22 PO; +LORA1TAB PO; -LOSA100T7 PO; +METF-480 PO; +MTF1000T PO; +RANI150T5 PO; +RISP0.5T3 PO; +VALS320T11 PO
[2016-06-22 11:25] VITALS: BP 144/65; PULSE 69; RESP 16; Ht 154.9 cm; Wt 72.7 kg
--- NOTE | 2016-06-22 11:49 | PN ---
Date/Time of Note Date/Time of Note DATE: 06/22/16 TIME: 11:45 Outpatient Progress Note Chief Complaint Chest pain/diabetes/hypertension/hyperlipidemia HPI Chest pain/patient was recently hospitalized with chest pain, patient does not have any chest pain at present, no palpitation, no pain in the left shoulder, or back, Diabetes/no polydipsia polyuria hypoglycemia, blood sugar this morning was 84, Hypertension no headache or dizziness, no local focal weakness, patient denies any ankle edema, Hyperlipidemia/no xanthoma, on medication, Review of Systems Const: No Fever, no chills, no Wt. loss, no Fatigue slightly obese,, normal appetite, no diaphoresis. Eyes: No pain, no discharge, no redness, no visual change, no foreign body. ENT: No pain, no bleeding, no congestion, no sore throat, no dysphagia, no discharge or rhinitis. Lymph: No adenopathy, no tender nodes, no lymphedema. No mass, Resp: No SOB, no cough, no sputum, no wheezing, no chest pain., Or hemoptysis, or chest tightness, CV: No chest pain, no palpitaions, no PARKER, no PND, no edema. GI: Normal appetite, no pain, no nausea, no vomiting, no diarrhea, no blood, no constipation. : No frequency, no urgency, no dysuria, no hematuria, no flank pain, no discharge, no bleeding. Musc: No bone/joint pain, no back pain, no neck pain, no knee pain, no restricted ROM. Skin: No rash, no skin lesions, no erythema, no laceration, no bruising, no pruritus. Neuro: No WASSERMAN, no dizziness, no syncope, no seizure, no focal-weakness. Endo: No polyuria, no polydypsia, no dry-skin, no temp-intolerance. Psych: No hallucinations, no depression, no anxiety, no suicidal ideation. Ext: No edema, no pain, no ulcer, no weakness. Physical Exam Vital Signs Date Time Temp Pulse Resp B/P Pulse Ox O2 Delivery O2 Flow Rate FiO2 06/22/16 11:25 97.9 69 16 144/65 97 Room Air General Appearance: A 60 year-old well-built well-nourished, not in acute distress, NECK: Supple. Trachea midline, No thyromegaly, No cervical lymphadenopathy, No mass, No carotid bruits, No JVD, Carotid pulses 2+ bilaterally. PULMONARY: Clear to auscultaion bilaterally, No retractions, Chest expansion symmetric bilaterally, no rales, no ronchi, no dulness on percussion. CARDIAC: Normal SI and S2, Regular rate and rythm, no murmur, gallop, or rub. GASTROINTESTINAL: Abdomen is soft, non-tender, Non Rigid, No distention, Positive bowel sounds x4 quadrants, Liver normal. SKIN: Warm, dry, no rash, no bruise, no echmosis. EXTREMITIES: Bilateral lower extremities normal, no edema, no phlabitus, pulse palpable, no contracture. MUSCULOSKELETAL: Spine Normal, Non-tender, Normal range of motion, No swelling, no deformity, no clubbing, or cyanosis, the patient has no edema to bilateral lower extremities, dorsalis pedis pulses palpable bilaterally. NEUROLOGIC: The patient is awake, alert, oriented, responding to yes/no questions appropriately, moving all extremities, cranial nerve intact, normal strenght, normal power, normal coordination, normal gait. Allergies Coded Allergies: No Known Allergy (Unverified , 02/24/16) PMH No change Social Hx No change Family Hx No change Assessment/Plan Impression Chest pain resolved Diabetes Hypertension Hyperlipidemia Plan Patient has all medication, patient feeling comfortable, no chest pain, blood sugar under control, blood pressure under control, Patient has all the medication and supply, Patient encouraged to follow with the primary care physician, Patient encouraged to control the blood pressure and blood sugar, increase exercise, Medications Home Meds Reported Medications Valsartan* (Diovan*) 320 Mg Tablet, 320 MG PO DAILY, TAB 06/08/16 Risperidone* (Risperidone*) 0.5 Mg Tablet, 0.5 MG PO BID, TAB 06/08/16 Ranitidine Hcl* (Ranitidine Hcl*) 150 Mg Tablet, 150 MG PO Q12, #60 TAB 06/08/16 Metformin* (Glucophage*) 1,000 Mg Tablet, 1000 MG PO BID, #60 TAB 06/08/16 Metformin* (Glucophage*) 850 Mg Tablet, 850 MG PO WITH BREAKFAST DINNE, #60 TAB 06/08/16 Lorazepam* (Lorazepam*) 1 Mg Tablet, 2 MG PO Q6 Y for ANXIETY, #60 TAB 06/08/16 Fluoxetine Hcl* (Fluoxetine Hcl*) 20 Mg Capsule, 20 MG PO DAILY, CAP 06/08/16 Atorvastatin Calcium* (Atorvastatin Calcium*) 20 Mg Tablet, 20 MG PO QHS, #30 TAB 06/08/16 Acetaminophen* (Acetaminophen*) 500 MG Extra Strength Tablet, 500 MG PO Q6H Y for PAIN LEVEL 1-5, TAB 06/08/16 Liraglutide (Victoza 2-Diego) 0.6 Mg/0.1 Ml Pen.injctr, 1.2 MG SQ DAILY, SYR 02/24/16 Amlodipine Besylate* (Norvasc*) 5 Mg Tablet, 5 MG PO DAILY, TAB 04/13/15 Insulin Glargine* (Lantus*) 100 Unit/Ml Soln, UNIT SC, #1 VIAL 04/13/15 CHANDRIKA CHRISTENSEN MD June 22, 2016 11:49
== END 2016-06-22 16:48 | disposition home or self-care (01) ==
LOC: DCC 11:17
PROVIDERS: ATTEND Internal Medicine
DX: R07.9 Chest pain, unspecified (principal); E11.9 Type 2 diabetes mellitus without complications; I10 Essential (primary) hypertension; E78.5 Hyperlipidemia, unspecified

== ENCOUNTER 2017-11-01 07:36 | Day surgery (SDC) | END 2017-11-01 14:36 | disposition home or self-care (01) ==